=== PATIENT | female | born 1975 | race African-American/Black ===

== ENCOUNTER 2017-12-29 15:43 | Emergency (ER) | payer OTHER, BC ==
[~2017-12-29] VITALS: Ht 167.6 cm; Wt 95.0 kg
[2017-12-29 16:47] VITALS: BP 113/62; PULSE 67; RESP 16; TEMP 98.1; O2SAT 100
[2017-12-29] MEDS ORDERED: ENAL10TA PO (16:53)
[2017-12-29] MEDS ORDERED: ACETAMINOPHEN 325 MG TAB PO ONE (17:15)
[2017-12-29] MEDS ORDERED: CYCLOBENZAPRINE HCL 10 MG TAB PO ONE (17:15)
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
[2017-12-29] MEDS ORDERED: CYCL10TA PO (18:38)
== END 2017-12-29 18:50 | disposition home or self-care (01) ==
LOC: NEPD 15:43
DX: R51 Headache (principal); M54.2 Cervicalgia; M25.531 Pain in right wrist; I10 Essential (primary) hypertension; Z79.899 Other long term (current) drug therapy; V49.50XA Passenger injured in collision with unspecified motor vehicles in traffic accident, initial encounter
CPT/HCPCS: 70450; 72125; 73110; 84703; 99284; L0150